=== PATIENT | male | born 1960 | race Caucasian/White ===

== ENCOUNTER 2017-08-03 15:36 | Emergency (ER) | payer BC ==
[2017-08-03 15:47] VITALS: RESP 16; TEMP 97.9; O2SAT 95
--- NOTE | 2017-08-03 16:53 | EDPHY ---
H & P Stated Complaint: L low back pain w/radiation to L ant thigh since Thu;sent by for MRI Time Seen by Provider: 08/03/17 16:27 HPI/ROS: CHIEF COMPLAINT: Low back pain, left thigh weakness HISTORY OF PRESENT ILLNESS: The patient is referred to the emergency department for evaluation of acute low back pain for the past 2 days. The patient has developed some weakness in his left thigh and is having difficulty weight-bearing. The patient does endorse symptoms of a vazquez radicular pain into his thigh. The patient has no prior history of back surgery or injury. The patient denies bowel or bladder dysfunction. He denies saddle anesthesia. The patient does have a past medical history significant for cardiac disease status post [place] in his 40s. REVIEW OF SYSTEMS: A comprehensive 10 point review of systems is otherwise negative aside from elements mentioned in the history of present illness. Source: Patient Exam Limitations: No limitations - Personal History Current Tetanus Diphtheria and Acellular Pertussis (TDAP): Yes - Medical/Surgical History Hx Cardiac Disease: Yes Other PMH: cholesterol. [place] 13 yrs ago w/2 stents. HTN - Social History Smoking Status: Former smoker - Physical Exam Exam: General Appearance: Alert, no distress Eyes: Pupils equal and round no pallor or injection ENT, Mouth: Mucous membranes moist Respiratory: There are no retractions, lungs are clear to auscultation Cardiovascular: Regular rate and rhythm Gastrointestinal: Abdomen is soft and nontender, no masses, bowel sounds normal Neurological: Alert and oriented x 4 LOWER EXTREMITY NEURO EXAM L1,2 Hip flexion 5/5 right, 4/5 left L3,4 Knee extension 5/5, 5/5 left L4 Dorsiflexion 5/5, 5/5 left L5 Great toe extension 5/5, 5/5 left S1,2 Plantar Flexion 5/5, 5/5 left Skin: Warm and dry, no rashes Musculoskeletal: Neck is supple nontender, tenderness to palpation left sacroiliac joint Extremities: symmetrical, full range of motion Constitutional: Initial Vital Signs Temperature (C) 36.6 C 08/03/17 15:42 Heart Rate 70 08/03/17 15:42 Respiratory Rate 16 08/03/17 15:42 Blood Pressure 152/83 H 08/03/17 15:42 O2 Sat (%) 95 08/03/17 15:42 O2 Delivery Mode Room Air Allergies/Adverse Reactions: No Known Allergies Allergy (Unverified 08/03/17 15:46) Home Medications: Medication Instructions Recorded Aspirin [Aspirin 81mg (*)] 81 mg PO DAILY 08/03/17 Atorvastatin Calcium [Lipitor 80 80 mg PO DAILY 08/03/17 mg] Cyclobenzaprine [Flexeril 10 MG 10 mg PO TID PRN #15 tab 08/03/17 (*)] Furosemide [Lasix 20 MG (*)] 20 mg PO 08/03/17 Hydrochlorothiazide [HCTZ (*)] 25 mg PO DAILY 08/03/17 Hydrocodone/APAP 5/325 [[place] 1 - 2 each PO Q6 PRN #20 tab 08/03/17 5/325] Losartan Potassium [Cozaar] 100 mg PO 08/03/17 Metoprolol Succinate [Toprol Xl 200 mg PO DAILY 08/03/17 200 mg] Potassium Chloride [Klor-Con 10] 10 meq PO 08/03/17 methylPREDNISolone [Medrol Dose 1 each PO AD #1 ea 08/03/17 Johny] Medical Decision Making ED Course/Re-evaluation: The patient presents to the ED with complaints of low back pain. The patient was noted to have very mild weakness at his left hip noted on exam. The patient was given 600 mg of ibuprofen. The patient was offered an MRI for further characterization of his lumbar anatomy however is unable to tolerate an MRI secondary to severe claustrophobia. At this point time there is no evidence of a nonsurgical emergency is examined the patient. He does have isolated left sacroiliac pain as well as some mild upper lumbar radicular symptoms. The patient will be given a prescription for Solu-Medrol, [place] and Flexeril. The patient is given the number of our on-call spine surgeon for further evaluation. He is advised to return to the ED for markedly worsening symptoms including weakness, bowel/bladder dysfunction, instability or other concerns. Differential Diagnosis: Differential diagnosis considered includes sacroiliitis, sciatica, myofascial strain, lumbar disc herniation - Data Points Medications Given: Discontinued Medications Ibuprofen (Motrin) 600 mg PO EDNOW ONE Stop: 08/03/17 17:48 Last Admin: 08/03/17 17:50 Dose: 600 mg Departure - Departure Disposition: Home, Routine, Self-Care Clinical Impression: Sciatica Condition: Good Instructions: Sciatica (ED), Lumbar Radiculopathy (ED) Additional Instructions: 1. Take Ibuprofen or Motrin 600 mg by mouth three times a day. 2. Take Solu-Medrol as directed for inflammation. 3. [place] as needed for pain. Flexeril as needed for muscle relaxation. Referrals: GREGORIA LEPE [Other] - As per Instructions Cole Rothman MD [Medical Doctor] - As per Instructions
[2017-08-03] MEDS ORDERED: IBUPROFEN 600 MG TAB PO ONE (17:47)
[2017-08-03 19:35] VITALS: BP 153/92; PULSE 74
== END 2017-08-03 19:41 | disposition home or self-care (01) ==
DX: M54.42 Lumbago with sciatica, left side (principal); I10 Essential (primary) hypertension; Z79.82 Long term (current) use of aspirin; Z87.891 Personal history of nicotine dependence

== ENCOUNTER 2017-08-06 14:48 | Emergency (ER) | payer BC ==
--- NOTE | 2017-08-06 15:13 | EDPHY ---
H & P Stated Complaint: increasing L leg numbness--seen here 08/03 same-cant get neuro till 08/27 Time Seen by Provider: 08/06/17 15:13 HPI/ROS: CHIEF COMPLAINT: [ ] HISTORY OF PRESENT ILLNESS: [Need 4: Location, Duration, Severity, Quality, Context, Timing Modifying Factors, Associated S&S] REVIEW OF SYSTEMS: A comprehensive 10 point review of systems is otherwise negative aside from elements mentioned in the history of present illness. Source: Patient - Personal History Current Tetanus/Diphtheria Vaccine: Unsure Current Tetanus Diphtheria and Acellular Pertussis (TDAP): Unsure - Medical/Surgical History Hx Asthma: No Hx Chronic Respiratory Disease: No Hx Diabetes: No Hx Cardiac Disease: Yes Hx Renal Disease: No Hx Cirrhosis: No Hx Alcoholism: No Hx HIV/AIDS: No Hx Splenectomy or Spleen Trauma: No Other PMH: hyperlipidemia. [place] 2003 w/2 stents. HTN - Social History Smoking Status: Former smoker - Physical Exam Exam: General Appearance: [Alert, no distress] Eyes: [Pupils equal and round no pallor or injection] ENT, Mouth: [Mucous membranes moist] Respiratory: [There are no retractions, lungs are clear to auscultation] Cardiovascular: [Regular rate and rhythm] Gastrointestinal: [Abdomen is soft and nontender, no masses, bowel sounds normal] Neurological: [A&O, normal motor function, normal sensory exam, normal cranial nerves] Skin: [Warm and dry, no rashes] Musculoskeletal: [Neck is supple nontender] Extremities: [symmetrical, full range of motion] Psychiatric: [Patient is oriented X 3, there is no agitation] Constitutional: Initial Vital Signs Temperature (C) 37.0 C 08/06/17 14:50 Heart Rate 90 08/06/17 14:50 Respiratory Rate 16 08/06/17 14:50 Blood Pressure 128/75 H 08/06/17 14:50 O2 Sat (%) 97 08/06/17 14:50 O2 Delivery Mode Room Air Allergies/Adverse Reactions: No Known Allergies Allergy (Unverified 08/03/17 15:46) Home Medications: Medication Instructions Recorded Aspirin [Aspirin 81mg (*)] 81 mg PO DAILY 08/03/17 Atorvastatin Calcium [Lipitor 80 80 mg PO DAILY 08/03/17 mg] Cyclobenzaprine [Flexeril 10 MG 10 mg PO TID PRN #15 tab 08/03/17 (*)] Furosemide [Lasix 20 MG (*)] 20 mg PO 08/03/17 Hydrochlorothiazide [HCTZ (*)] 25 mg PO DAILY 08/03/17 Hydrocodone/APAP 5/325 [[place] 1 - 2 each PO Q6 PRN #20 tab 08/03/17 5/325] Losartan Potassium [Cozaar] 100 mg PO 08/03/17 Metoprolol Succinate [Toprol Xl 200 mg PO DAILY 08/03/17 200 mg] Potassium Chloride [Klor-Con 10] 10 meq PO 08/03/17 methylPREDNISolone [Medrol Dose 1 each PO AD #1 ea 08/03/17 Johny] Departure - Departure Referrals: GREGORIA LEPE [Other] - As per Instructions
[2017-08-06] MEDS ORDERED: HYDROmorphONE/DILAUDID 1 MG/ML INJ IVP ONE (15:27)
--- NOTE | 2017-08-06 15:30 | EDPHY ---
H & P Stated Complaint: increasing L leg numbness--seen here 08/03 same-cant get neuro till 08/27 Time Seen by Provider: 08/06/17 15:13 HPI/ROS: CHIEF COMPLAINT: Sciatica, leg weakness HISTORY OF PRESENT ILLNESS: The patient is a 56 y/o male returning for worsening left leg pain, numbness, and weakness. On Thursday, 5 days ago, he drove 10.5 hours and by Thursday morning he had notable lower left back pain and left leg pain. He denies preceding trauma. He was seen here 3 days ago for these symptoms and discharged with medications for sciatica. He was unable to tolerate MRI due to claustrophobia at that time. He is taking ibuprofen, Medrol , Flexeril, and Sapello as prescribed for symptoms with some relief. He has only taken two doses of Sapello today. His pain is getting worse through his left lumbar region, left gluteal region, and left thigh. He now has numbness on the medial side of his left lower leg. Last night he developed left leg weakness and fell when getting out of a chair because his leg "gave out." He denies any incontinence or saddle anesthesia. He pain is worse when lying flat and causes difficulty walking. He has a follow-up appointment scheduled with Dr. Lawrence Rothman for August 27, 3 weeks from now. REVIEW OF SYSTEMS: A 10 point review of systems was performed and is negative with the exception of the elements mentioned in the history of present illness. Past medical history: 1. Cardiac disease with [place] age 43 2. Hypercholesterolemia 3. Left femur fracture 4. Claustrophobia Prior medical records reviewed including ED visit 08/03/17 for sciatica. Past surgical history: 2 cardiac stents Family history: Noncontributory Social history: Works in construction. Former smoker until age 43. General Appearance: Alert, no acute distress. Eyes: Pupils equal and round, no conjunctival injection, no discharge. ENT, Mouth: Mucous membranes are moist, no oropharyngeal erythema or edema. Neck: No lymphadenopathy, supple. Respiratory: Lungs are clear to auscultation; no wheezes, rales, or rhonchi. Cardiovascular: Regular rate and rhythm; no murmur, rub, or gallop. Gastrointestinal: Abdomen is soft and non tender, no masses or organomegaly, bowel sounds normal. Skin: Warm and dry, no rashes, normal color. Back: Nontender to palpation over the thoracolumbar spine. Extremities: No lower extremity edema, no calf tenderness or swelling. Musculoskeletal: Upper left buttock tenderness Neurological: Alert and oriented. Moving all four extremities. Strength is 4+/ 5 with left hip flexion, 5/5 in left knee and ankle. Sensation is intact to light touch over all 4 extremities. Deep tendon reflexes are absent in left knee and ankle. Unable to squat on left leg due to weakness. Psychiatric: Normal affect. - Personal History Current Tetanus/Diphtheria Vaccine: Unsure Current Tetanus Diphtheria and Acellular Pertussis (TDAP): Unsure - Medical/Surgical History Hx Asthma: No Hx Chronic Respiratory Disease: No Hx Diabetes: No Hx Cardiac Disease: Yes Hx Renal Disease: No Hx Cirrhosis: No Hx Alcoholism: No Hx HIV/AIDS: No Hx Splenectomy or Spleen Trauma: No Other PMH: hyperlipidemia. [place] 2003 w/2 stents. HTN - Social History Smoking Status: Former smoker Constitutional: Initial Vital Signs Temperature (C) 37.0 C 08/06/17 14:50 Heart Rate 90 08/06/17 14:50 Respiratory Rate 16 08/06/17 14:50 Blood Pressure 128/75 H 08/06/17 14:50 O2 Sat (%) 97 08/06/17 14:50 O2 Delivery Mode Room Air Allergies/Adverse Reactions: No Known Allergies Allergy (Unverified 08/03/17 15:46) Home Medications: Medication Instructions Recorded Aspirin [Aspirin 81mg (*)] 81 mg PO DAILY 08/03/17 Atorvastatin Calcium [Lipitor 80 80 mg PO DAILY 08/03/17 mg] Cyclobenzaprine [Flexeril 10 MG 10 mg PO TID PRN #15 tab 08/03/17 (*)] Furosemide [Lasix 20 MG (*)] 20 mg PO 08/03/17 Hydrochlorothiazide [HCTZ (*)] 25 mg PO DAILY 08/03/17 Hydrocodone/APAP 5/325 [[place] 1 - 2 each PO Q6 PRN #20 tab 08/03/17 5/325] Losartan Potassium [Cozaar] 100 mg PO 08/03/17 Metoprolol Succinate [Toprol Xl 200 mg PO DAILY 08/03/17 200 mg] Potassium Chloride [Klor-Con 10] 10 meq PO 08/03/17 methylPREDNISolone [Medrol Dose 1 each PO AD #1 ea 08/03/17 Johny] GABAPENTIN 300 mg PO TID #60 tablet 08/06/17 oxyCODONE/APAP 5/325 [Percocet 1 - 2 tab PO Q4H PRN #14 tab 08/06/17 5/325 (RX)] Medical Decision Making - Diagnostics Imaging: Discussed imaging studies w/ yard caller Radiologist, I viewed and interpreted images myself ED Course/Re-evaluation: This is a 56 y/o male who returns with worsening sciatica and left leg weakness. We will attempt to complete an MRI in conjunction with pain medication and antianxiety medication to treat his claustrophobia. IV established. 0.5mg IV Dilaudid ordered. He decided not to take any pain medication because he is not certain that he can find a ride home. Reevaluated patient and discussed work up. MRI shows herniated disc L4-L5, paracentral and foraminal,, which correlates with patient's symptoms. In addition to his Medrol and Flexeril, he will be discharged with scripts for Percocet and Gabapentin and referral to non-surgical back specialists for follow up. He has an appointment with Neurosurgery in 3 weeks. Strict return precautions discussed. He is comfortable with plan for discharge. Differential Diagnosis: Back pain including but not limited to muscular pain, herniated disc, spine fracture, intra-abdominal causes and urinary tract infection. - Data Points Medications Given: Discontinued Medications Hydromorphone HCl (Dilaudid) 0.5 mg IVP EDNOW ONE Stop: 08/06/17 15:28 Last Admin: 08/06/17 17:02 Dose: Not Given Departure - Departure Disposition: Home, Routine, Self-Care Clinical Impression: Lumbar disc herniation Condition: Good Instructions: Oxycodone/Acetaminophen (By mouth), Gabapentin (By mouth), Lumbar Disc Herniation (ED) Additional Instructions: 1. Continue Medrol dose pack as prescribed. 2. Continue Flexeril as directed. 3. Take Gabapentin as prescribed. This can take a few days to be effective. This medication can make some people drowsy. 4. Take Sapello or Percocet as directed when needed for severe pain. Do not use these together and do not take them with Tylenol. These medications can make you sleepy so you cannot drive or operate heavy machinery while using them. There is also a risk of addiction with these medications, so use only when needed. 5. Return to the ED immediately if you cannot walk or if you experience bowel or bladder incontinence. 6. Follow up with non-surgical back specialist. I recommend calling tomorrow to make an appointment. 7. Keep your appointment with Dr. Lawrence Rothman for now so that option remains open to you. You may decide to cancel it after seeing Dr. Dorsey or Oz Banuelos. Referrals: GREGORIA LEPE [Other] - As per Instructions Kyara Dorsey [Medical Doctor] - As per Instructions Oz Banuelos [Outside] - As per Instructions Prescriptions: GABAPENTIN 300 mg PO TID #60 tablet oxyCODONE/APAP 5/325 [Percocet 5/325 (RX)] 1 - 2 tab PO Q4H PRN #14 tab PRN Reason: Pain, Severe Report Scribed for: Krissy Berry Report Scribed by: Mohini Richard Date of Report: 08/06/17 Time of Report: 15:34 Physician Review and Approval Statement: 08/09/17 21:46 Portions of this note were transcribed by the medical physicist. I, Dr. Krissy Berry, personally performed the history, physical exam, and medical decision- making; and confirmed the accuracy of the information in the transcribed note.
[2017-08-06 18:25] VITALS: BP 130/89; PULSE 74; RESP 18; TEMP 98.1; O2SAT 94
== END 2017-08-06 18:26 | disposition home or self-care (01) ==
DX: M51.26 Other intervertebral disc displacement, lumbar region (principal); I10 Essential (primary) hypertension; Z79.82 Long term (current) use of aspirin; Z87.891 Personal history of nicotine dependence; Z95.5 Presence of coronary angioplasty implant and graft